=== PATIENT | male | born 1955 | race Caucasian/White ===

== ENCOUNTER 2017-12-28 18:34 | Emergency (ER) | payer MEDICARE, BC, OTHER ==
[~2017-12-28] VITALS: Ht 170.2 cm; Wt 95.2 kg
[2017-12-28 18:40] VITALS: BP 145/87
== END 2017-12-28 19:38 | disposition home or self-care (01) ==
LOC: ED 19:30
DX: S83.411A Sprain of medial collateral ligament of right knee, initial encounter (principal); E78.5 Hyperlipidemia, unspecified; E78.00 Pure hypercholesterolemia, unspecified; X58.XXXA Exposure to other specified factors, initial encounter; Y93.01 Activity, walking, marching and hiking; Y99.8 Other external cause status; Y92.89 Other specified places as the place of occurrence of the external cause
CPT/HCPCS: 99284

== ENCOUNTER 2018-10-11 12:05 | Emergency (ER) | payer MEDICARE, BC, OTHER ==
[~2018-10-11] VITALS: Ht 170.2 cm; Wt 99.2 kg
[2018-10-11 12:13] VITALS: BP 143/85
[2018-10-11 12:50] LABS: BASOPHILS # (AUTO) 0.02 x10^3/uL (0-0.1); BASOPHILS % (AUTO) 0 % (0-1); EOSINOPHILS # (AUTO) 0.05 x10^3/uL (0-0.4); EOSINOPHILS % (AUTO) 1 % (1-7); LYMPHOCYTES # (AUTO) 1.56 x10^3/uL (1-3.4); LYMPHOCYTES % (AUTO) 29 % (22-44); MD NO; MEAN CORPUSCULAR HEMOGLOBIN 31.3 pg (27.5-34.5); MEAN CORPUSCULAR HGB CONC 33.4 g/dL (33.2-36.2); MEAN CORPUSCULAR VOLUME 93.8 fL (81-97); MEAN PLATELET VOLUME 8.3 fL (7.4-10.4); MONOCYTES # (AUTO) 0.34 x10^3/uL (0.2-0.8); MONOCYTES % (AUTO) 6 % (2-9); NEUTROPHILS # (AUTO) 3.39 x10^3/uL (1.8-6.8); NEUTROPHILS % (AUTO) 63 % (42-75); PLATELET COUNT 131 x10^3/uL (130-400); RED BLOOD COUNT 4.77 x10^6/uL (4.38-5.82); RED CELL DISTRIBUTION WIDTH 12.8 % (9.4-14.8)
[2018-10-11] MEDS ORDERED: FAMOTIDINE 20 MG TABLET PO ONE (13:00)
[2018-10-11] MEDS ORDERED: MAALOX/HYOSCYAMINE/LIDOCAINE 45 ML BTL PO ONE (13:00)
[2018-10-11 13:02] LABS: ALANINE AMINOTRANSFERASE 29 U/L (12-78); ALBUMIN 3.7 g/dL (3.4-5.0); ANION GAP 4 mmol/L (5-15); CALCIUM 8.8 mg/dL (8.5-10.1); CHLORIDE 111 mmol/L (98-107)
[2018-10-11 13:07] LABS: ALKALINE PHOSPHATASE 54 U/L (45-117); BILIRUBIN,TOTAL 1.8 mg/dL (0.2-1.0); CREATININE 1.06 mg/dL (0.7-1.3); TOTAL PROTEIN 6.7 g/dL (6.4-8.2); TROPONIN I < 0.015 ng/mL (0.000-0.045)
[2018-10-11] MEDS ORDERED: MAALOX/HYOSCYAMINE/LIDOCAINE 45 ML BTL ONE (13:09)
[2018-10-11] MEDS ORDERED: FAMOTIDINE 20 MG TABLET ONE (13:09)
--- NOTE | 2018-10-11 13:27 | NUR ---
Pt verbalizes tremendous pain relief with GI cocktail. States he is feeling much better. ERP made aware.
[2018-11-24] MEDS ORDERED: PROP80CA3 PO (09:49)
[2018-11-24] MEDS ORDERED: ATOR-2 PO (09:49)
[2018-11-24] MEDS ORDERED: LISI2.5T PO (09:49)
[2018-12-24] MEDS ORDERED: OMEP-110 PO (09:35)
== END 2018-10-11 13:41 | disposition home or self-care (01) ==
LOC: ED 13:30
DX: R07.89 Other chest pain (principal); K21.9 Gastro-esophageal reflux disease without esophagitis; I10 Essential (primary) hypertension; E78.00 Pure hypercholesterolemia, unspecified; E78.5 Hyperlipidemia, unspecified
CPT/HCPCS: 36415; 71045; 80053; 83690; 84484; 85025; 93005; 99284

== ENCOUNTER 2018-12-31 06:31 | Outpatient (CLI) | payer MEDICARE, BC, OTHER ==
[~2018-12-31 06:31] MED LIST: ATOR-2 PO; LISI2.5T PO; OMEP-110 PO; PROP80CA3 PO
== END 2018-12-31 23:59 | disposition home or self-care (01) ==
LOC: CVU 06:31
PROVIDERS: ATTEND Registered Nurse
DX: R42 Dizziness and giddiness (principal)
CPT/HCPCS: 93880

== ENCOUNTER 2019-08-23 12:01 | Emergency (ER) | payer MEDICARE, BC ==
[~2019-08-23] VITALS: Ht 170.2 cm; Wt 89.7 kg
[2019-08-23] MEDS ORDERED: SODIUM CHLORIDE FLUSH 10ML SYR IVF ONE (13:00)
[2019-08-23] MEDS ORDERED: METO25TA35 PO (13:10)
[2019-08-23] MEDS ORDERED: ASPI81TA45 PO (13:10)
[2019-08-23] MEDS ORDERED: MELO7.5T31 PO (13:10)
[2019-08-23 13:13] LABS: BASOPHILS # (AUTO) 0.05 x10^3/uL (0-0.1); BASOPHILS % (AUTO) 0 % (0-1); EOSINOPHILS # (AUTO) 0.04 x10^3/uL (0-0.4); EOSINOPHILS % (AUTO) 0 % (1-7); LYMPHOCYTES % (AUTO) 10 % (22-44); MD NO; MEAN CORPUSCULAR HEMOGLOBIN 30.4 pg (27.5-34.5); MEAN CORPUSCULAR HGB CONC 32.9 g/dL (33.2-36.2); MEAN CORPUSCULAR VOLUME 92.2 fL (81-97); MEAN PLATELET VOLUME 6.8 fL (7.4-10.4); MONOCYTES # (AUTO) 0.42 x10^3/uL (0.2-0.8); MONOCYTES % (AUTO) 4 % (2-9); NEUTROPHILS # (AUTO) 8.84 x10^3/uL (1.8-6.8); NEUTROPHILS % (AUTO) 85 % (42-75); PLATELET COUNT 327 x10^3/uL (130-400); RED BLOOD COUNT 4.28 x10^6/uL (4.38-5.82)
--- NOTE | 2019-08-23 13:14 | NUR ---
PT PLACED ON ALL ROOM MONITORING. IV PLACED, LABS DRAWN. PT STATES SOB WAS SUDDEN ONSET WHILE IN SHOWER, PT FELT "LIKE I WAS BREATHING BUT NO AIR GOING IN. I THOUGHT IS WAS GOING TO ". PT STATES STILL FEELS SOB BUT NOT SEVERE AT THIS TIME. VSS ON MONITOR. PT'S SKIN P/W/D. PER PT, KNEE HEALING WELL FROM SURGICAL REPLACEMENT 16 DAYS AGO. CALL LIGHT WITHIN REACH. WARM BLANKET PROVIDED.
[2019-08-23 13:23] LABS: ALBUMIN 2.9 g/dL (3.4-5.0); ANION GAP 6 mmol/L (5-15); CALCIUM 9.1 mg/dL (8.5-10.1); CHLORIDE 100 mmol/L (98-107)
[2019-08-23 13:26] LABS: TROPONIN I < 0.015 ng/mL (0.000-0.045)
[2019-08-23 13:37] LABS: D-DIMER 12.47 ug/mlFEU (0.00-0.52); INTERNATIONAL NORMALIZED RATIO 0.97 (0.93-1.1); PROTHROMBIN TIME 10.3 Seconds (9.6-11.5)
--- NOTE | 2019-08-23 13:51 | NUR ---
ALL RESULTS BACK, ADD ON ORDER FOR CTA D/T ELEVATED DDIMER
--- NOTE | 2019-08-23 14:10 | NUR ---
PT TO CT
[2019-08-23] MEDS ORDERED: OMNIPAQUE 350 MG/ML, 100ML BOTTLE ONE (14:24)
--- NOTE | 2019-08-23 14:41 | NUR ---
CTA RESULTS BACK, PT FOR RECHECK.
--- NOTE | 2019-08-23 14:43 | NUR ---
ADD ON ORDER FOR TROPONIN AT 1600.
[2019-08-23 15:17] VITALS: BP 136/67
--- NOTE | 2019-08-23 15:24 | NUR ---
REPORT TO KELLIE BELTRAN, TRANSFER OF CARE AT THIS TIME.
--- NOTE | 2019-08-23 15:27 | NUR ---
BEDSIDE REPORT FROM KIMBERLY BELTRAN. PT RESTING IN [facility]. AWAITING REPEAT TROPO @1600
[2019-08-23 16:18] LABS: TROPONIN I < 0.015 ng/mL (0.000-0.045)
--- NOTE | 2019-08-23 16:27 | NUR ---
MD AT BEDSIDE, PT TO BE DISCHARGED
== END 2019-08-23 17:11 | disposition home or self-care (01) ==
LOC: ED 17:09
DX: R06.00 Dyspnea, unspecified (principal); R00.0 Tachycardia, unspecified; R07.9 Chest pain, unspecified; E78.00 Pure hypercholesterolemia, unspecified; K21.9 Gastro-esophageal reflux disease without esophagitis; I10 Essential (primary) hypertension; E78.5 Hyperlipidemia, unspecified; Z96.652 Presence of left artificial knee joint
CPT/HCPCS: 36415; 71045; 71275; 80048; 82040; 84484; 85025; 85379; 85610; 93005; 99285; Q9967

== ENCOUNTER → 2019-12-02 | Outpatient (CLI) | payer MEDICARE, BC ==
[~2019-12-02] MED LIST changes: +ASPI81TA45 PO; +MELO7.5T31 PO; +METO25TA35 PO
== END | disposition home or self-care (01) ==
LOC: CFH 10:07
PROVIDERS: ATTEND Internal Medicine Cardiovascular Disease
DX: I34.0 Nonrheumatic mitral (valve) insufficiency (principal)
CPT/HCPCS: 93306